=== PATIENT | female | born 1965 | race Caucasian/White ===

== ENCOUNTER 2017-11-26 07:15 | Day surgery (SDC) | payer OTHER ==
[2017-11-05 16:23] VITALS: BMI 29.2
--- NOTE | 2017-11-26 02:11 | HP ---
SHORT STAY HISTORY AND PHYSICAL DATE OF ADMISSION: 11/26/2017 HISTORY OF PRESENT ILLNESS: This is a 51-year-old female who came for a colonoscopy for colon cancer screening. The patient has family history of colon cancer. The patient also has had mild rectal bl eeding and the guaiac came back positive for occult blood. The patient is undergoing colonoscopy bec ause of above reason. ALLERGIES: None. SOCIAL HISTORY: The patient does not smoke or drink alcohol. MEDICAL ILLNESSES: None. SURGERIES: Status post total hysterectomy in 2016 and it was done in [place]. PHYSICAL EXAMINATION: VITAL SIGNS: Pulse is 70, blood pressure 130/80. HEENT: Conjunctivae clear. CARDIOVASCULAR: First and second heart sounds normal. LUNGS: Clear to auscultation. ABDOMEN: Soft to palpate. No organomegaly. No tenderness. No masses. ADMITTING DIAGNOSIS: A 51-year-old female with family history of colon cancer, undergoing colonoscop y.
--- NOTE | 2017-11-26 11:50 | OP ---
DATE OF PROCEDURE: 11/26/2017 SURGEON: Kasey Vega M.D. OPERATIVE PROCEDURE: Colonoscopy. PREOPERATIVE DIAGNOSES: A 51-year-old female undergoing colonoscopy for colon cancer screening. POSTOPERATIVE DIAGNOSIS: Normal colonoscopy except for small hemorrhoids. OPERATIVE PROCEDURE IN DETAIL: The patient was placed on her left lateral position and was given sed ation by Anesthesia Department. A rectal exam was done before the scope was advanced into the rectum . No lesion felt on rectal exam. A [employer]ax video colonoscope was introduced into the rectum and adva nced all the way to the cecum. The prep was good. The mucosa appeared normal throughout the colon. The appendical orifice and ileocecal valve, cecum, no pathology seen. Withdrawal of scope in the ce cum and ascending colon, hepatic flexure, transverse colon, splenic flexure, and descending colon, no pathology seen. The sigmoid colon again showed no pathology. Rectum showed small hemorrhoids. DISCHARGE PLANNING: This is a 51-year-old female who came for a colonoscopy for colon cancer screening. She does have family history of colon cancer. The colonoscopy was basically nega tive. DISCHARGE RECOMMENDATIONS: 1. The patient advised to call me if she develops abdominal pain and hematochezia. 2. In the absence of any of the above symptoms, she will come back to me in 2 weeks. 3. Repeat colonoscopy in 3 years because of family history of colon cancer. She is high risk for co brenda cancer.
[2017-11-26] MEDS ORDERED: Lidocaine 1% PF 5 ML VIAL ONE (13:33)
[2017-11-26] MEDS ORDERED: PROPOFOL 200 MG/20 ML VIAL ONE (13:33)
== END 2017-11-26 10:05 | disposition home or self-care (01) ==
LOC: SDC 07:15
PROVIDERS: ATTEND Internal Medicine Gastroenterology
PROC: 0DJD8ZZ Inspection of Lower Intestinal Tract, Via Natural or Artificial Opening Endoscopic (ICD-10-PCS; principal; 2017-11-26)
DX: K64.9 Unspecified hemorrhoids (principal); Z80.0 Family history of malignant neoplasm of digestive organs